=== PATIENT | female | born 1935 | race Caucasian/White ===

== ENCOUNTER 2022-09-14 12:33 | Emergency (ER) | payer MEDICARE, OTHER ==
[~2022-09-14] VITALS: Ht 160 cm; Wt 75.0 kg
[2022-09-14] MEDS ORDERED: ZESTORETIC 10-1 EACH PO (12:59)
[2022-09-14] MEDS ORDERED: LIPITOR 10M10 MG/TAB PO (12:59)
[2022-09-14 13:24] LABS: BASO # 0.02 K/mm3 (0.02-0.10); EOS # 0.11 K/mm3 (0.04-0.40); EOS % 1.5 % (1.0-5.0); HEMATOCRIT 41.2 % (37.0-47.0); LYMPH# 1.25 K/mm3 (1.50-4.00); MEAN CELL VOLUME 98 fl (78-100); MEAN CORPUSCULAR HEMOGLOBIN 33 pg (27-31); MEAN CORPUSCULAR HGB CONC 34 g/dL (33-37); MEAN PLATELET VOLUME 10.2 fl (7.4-10.4); MONO # 0.64 K/mm3 (0.20-0.80); NEU # 5.42 K/mm3 (1.40-6.50); PLATELET COUNT 219 K/mm3 (130-400); RED BLOOD COUNT 4.21 M/mm3 (4.10-5.30); RED CELL DISTRIBUTION WIDTH 12.9 % (11.5-14.5); WHITE BLOOD COUNT 7.5 K/mm3 (4.8-10.8)
[2022-09-14 13:39] LABS: ALBUMIN 4.1 g/dL (3.4-4.8); SODIUM 139 mmol/L (136-145)
[2022-09-14 13:41] LABS: GLUCOSE 99 mg/dL (65-105)
[2022-09-14 13:43] LABS: CARBON DIOXIDE 21 mmol/L (23-31); TOTAL BILIRUBIN 0.5 mg/dL (0.2-1.2)
[2022-09-14 13:47] LABS: AST-SGOT 17 U/L (5-34)
[2022-09-14 13:48] LABS: ALT/SGPT 13 U/L (0-55)
[2022-09-14 13:57] LABS: TROPONIN-I < 0.030 ng/mL (<0.030)
[2022-09-14 14:20] VITALS: BP 152/92
[2022-12-03] MEDS ORDERED: ONDANSETRON ODT8 MG PO (10:56)
[2022-12-03] MEDS ORDERED: GABAPENTIN100 MG PO (10:56)
== END 2022-09-14 14:16 | disposition home or self-care (01) ==
LOC: ED 12:33
PROVIDERS: Family Medicine
DX: I16.0 Hypertensive urgency (principal); I10 Essential (primary) hypertension

== ENCOUNTER → 2023-08-23 | Outpatient (CLI) | payer MEDICARE, OTHER ==
[~2023-08-23] MED LIST: GABAPENTIN100 MG PO; LIPITOR 10M10 MG/TAB PO; ONDANSETRON ODT8 MG PO; ZESTORETIC 10-1 EACH PO
== END ==
LOC: RAD 14:25
DX: J90 Pleural effusion, not elsewhere classified (principal); J98.11 Atelectasis; H30.91 Unspecified chorioretinal inflammation, right eye